=== PATIENT | female | born 1990 | race Caucasian/White ===

== ENCOUNTER 2021-07-30 14:08 | Emergency (ER) | payer SELFPAY ==
[~2021-07-30] VITALS: Ht 177.8 cm; Wt 70.3 kg
[2021-07-30] MEDS ORDERED: PRENATABS RX T1 EACH PO (14:36)
== END 2021-07-30 16:47 | disposition home or self-care (01) ==
LOC: ED 14:08
DX: O20.9 Hemorrhage in early pregnancy, unspecified (principal); Z3A.01 Less than 8 weeks gestation of pregnancy; Z79.899 Other long term (current) drug therapy
CPT/HCPCS: 76801; 76817; 84702; 84703; 85025; 86900; 99284-25